=== PATIENT | male | born 1980 | race Caucasian/White ===

== ENCOUNTER → 2017-06-23 | Outpatient (REF) | payer BC ==
[2017-06-23 23:08] LABS: INFLUENZA A AMPLIFICATION NEGATIVE (NEGATIVE); INFLUENZA B AMPLIFICATION POSITIVE (NEGATIVE)
== END ==
LOC: M LAB REF 21:51
DX: J11.1 Influenza due to unidentified influenza virus with other respiratory manifestations (principal)
CPT/HCPCS: 87502